=== PATIENT | male | born 1945 | race Caucasian/White ===

== ENCOUNTER 2024-03-24 10:13 | Inpatient (IN) | payer MEDICARE, BC ==
[~2024-03-24] VITALS: Ht 162.6 cm; Wt 62.1 kg
[2024-03-24 11:02] LABS: HEMATOCRIT 47 % (39-51); HEMOGLOBIN 15.5 g/dL (13.5-17.5); LYMPHOCYTES # (AUTO) 0.2 K/uL (0.8-4.8); LYMPHOCYTES % (AUTO) 1.8 % (20.0-44.0); MEAN CORPUSCULAR HEMOGLOBIN 29 PG (26.0-33.0); MEAN CORPUSCULAR HGB CONC 33 g/dl (31.0-36.0); MEAN CORPUSCULAR VOLUME 87 fL (80-96); MONOCYTES # (AUTO) 0.2 K/uL (0.1-1.30); MONOCYTES % (AUTO) 1.6 % (2.0-12.0); NEUTROPHILS # (AUTO) 12.5 K/uL (1.8-8.9); NEUTROPHILS % (AUTO) 96.6 % (43.0-81.0); PLATELET COUNT (AUTO) 322 K/uL (150-450); RED BLOOD CELL COUNT(AUTO) 5.44 MIL/uL (4.5-6.0); RED CELL DISTRIBUTION WIDTH 14.4 % (11.5-15.0); WHITE BLOOD COUNT (AUTO) 12.9 K/uL (4.3-11.0)
[2024-03-24 11:11] LABS: CALCIUM, SERUM 9.2 mg/dL (8.5-10.1); CREATININE 2.6 mg/dL (0.6-1.3); POTASSIUM 3.6 mmol/L (3.5-5.1)
[2024-03-24 11:16] LABS: ALBUMIN 2.6 g/dL (3.4-5.0); BILIRUBIN,DIRECT 0.3 mg/dL (0.0-0.2); BILIRUBIN,TOTAL 0.9 mg/dL (0.2-1.0); TOTAL PROTEIN, SERUM 6.9 g/dL (6.4-8.2)
[2024-03-24] MEDS: IV NS 0.9% 1,000 ML BAG IV ONE ×2 (12:29→14:19)
[2024-03-24 12:50] LABS: ADD URINE CULTURE YES; APPEARANCE,URINE CLOUDY (CLEAR); BACTERIA,URINE Many /HPF (None Seen); BILIRUBIN,URINE 1+ (NEGATIVE); BLOOD, URINE 3+ Ery/uL (NEGATIVE); COLOR,URINE DARK YELLOW (YELLOW); KETONES,URINE TRACE mg/dL (NEGATIVE); LEUKOCYTE ESTERASE ,URINE 2+ (NEGATIVE); NITRITE, URINE NEGATIVE (NEGATIVE); PROTEIN,URINE 2+ mg/dl (NEGATIVE); RBC,URINE 81-100 /HPF (0-2); SQUAMOUS EPITHELIAL CELL,UR Rare /HPF (None Seen); UGLUCOSE NEGATIVE (NEGATIVE); WBC,URINE 51-80 /HPF (0-3)
[2024-03-24] MEDS ORDERED: LEVO50TA8 PO (14:10)
[2024-03-24] MEDS ORDERED: ROSU10TA2 PO (14:10)
[2024-03-24] MEDS ORDERED: AMLO-212 PO (14:10)
[2024-03-24] MEDS ORDERED: OLME40TA18 PO (14:10)
[2024-03-24] MEDS ORDERED: HYDR12.55 PO (14:10)
[2024-03-24] MEDS: PIPERACILLIN /TAZOBACTAM 3.375 G in IV D5W 50 ML IV ONE (14:19)
[2024-03-24] MEDS ORDERED: hydrALAZINE HCL IV 20 MG VIAL IV PRN (16:30)
[2024-03-24] MEDS ORDERED: MORPHINE SULFATE INJ 2 MG/ML DISP.SYRIN IV PRN (16:30)
[2024-03-24] MEDS ORDERED: ACETAMINOPHEN 325 MG TABLET PO PRN (16:30)
[2024-03-24 21:00] VITALS: BP 105/62; TEMP 99.1; O2SAT 94
[2024-03-24] MEDS: HEPARIN SODIUM, PORCINE 5000 UNITS/1 ML VIAL SQ SCH (21:51)
[2024-03-24] MEDS ORDERED: CEFEPIME 1 GM VIAL ONE (22:51)
[2024-03-24] MEDS: CEFEPIME 1 GM in IV D5W 50 ML IV SCH (22:52)
[2024-03-24 23:00] VITALS: BP 117/64; TEMP 99; O2SAT 91
[2024-03-25] VITALS (85 sets, daily range): BP systolic 73–128; BP diastolic 50–86; TEMP 98.6–99.3; O2SAT 74–100
[2024-03-25 05:51] LABS: ABG BASE EXCESS -0.2 mmol/L (-2.0-3.0); ABG OXYGEN SATURATION 90.6 % (94.0-98.0); ABG PCO2 33.1 mmHg (35.0-48.0); ABG PH 7.457 (7.350-7.450); ABG PO2 57.2 mmHg (83.0-108.0); ABG TOTAL HEMOGLOBIN 15.6 G/dL (13.5-17.5); COHb 0.7 % (0.5-1.5); MetHb 0.2 % (0.0-1.5); O2Hb 89.8 % (94.0-97.0); SITE, ABG RIGHT BRACHIAL
[2024-03-25] MEDS: ONDANSETRON HCL/PF 4 MG/2 ML VIAL IVP PRN (06:09)
[2024-03-25] MEDS: PHENYLEPHRINE 50 MG in IV NS 0.9% 245 ML IV PRN (07:00)
[2024-03-25] MEDS: LEVOTHYROXINE SODIUM 50 MCG TABLET PO SCH (07:30)
[2024-03-25 07:57] LABS: HEMATOCRIT 43 % (39-51); HEMOGLOBIN 14.2 g/dL (13.5-17.5); LYMPHOCYTES # (AUTO) 0.2 K/uL (0.8-4.8); MEAN CORPUSCULAR HEMOGLOBIN 29 PG (26.0-33.0); MEAN CORPUSCULAR HGB CONC 33 g/dl (31.0-36.0); MEAN CORPUSCULAR VOLUME 87 fL (80-96); MONOCYTES # (AUTO) 0.1 K/uL (0.1-1.30); MONOCYTES % (AUTO) 1.1 % (2.0-12.0); NEUTROPHILS # (AUTO) 11.7 K/uL (1.8-8.9); NEUTROPHILS % (AUTO) 96.9 % (43.0-81.0); PLATELET COUNT (AUTO) 315 K/uL (150-450); RED BLOOD CELL COUNT(AUTO) 4.94 MIL/uL (4.5-6.0); RED CELL DISTRIBUTION WIDTH 14.9 % (11.5-15.0); WHITE BLOOD COUNT (AUTO) 12.1 K/uL (4.3-11.0)
[2024-03-25 08:41] LABS: ALBUMIN 1.9 g/dL (3.4-5.0); BILIRUBIN,TOTAL 0.6 mg/dL (0.2-1.0); CALCIUM, SERUM 8.5 mg/dL (8.5-10.1); CREATININE 2.9 mg/dL (0.6-1.3); MAGNESIUM 2.1 mg/dL (1.8-2.4); PHOSPHORUS 3.3 mg/dL (2.5-4.9); POTASSIUM 4.1 mmol/L (3.5-5.1)
[2024-03-25] MEDS ORDERED: LOSARTAN POTASSIUM 50 MG TABLET PO SCH (09:00)
[2024-03-25] MEDS: AMLODIPINE BESYLATE 5 MG TABLET PO SCH (09:00)
[2024-03-25] MEDS: ATORVASTATIN 40 MG TABLET PO SCH (09:00)
[2024-03-25] MEDS: METRONIDAZOLE 500MG/ NS 100ML 500 MG in PREMIX 1 EA IV SCH (09:19)
[2024-03-25] MEDS: PANTOPRAZOLE 40 MG VIAL IV SCH (16:56)
[2024-03-25] MEDS: CEFEPIME 1 GM in IV D5W 50 ML IV SCH (21:16)
[2024-03-26] VITALS (93 sets, daily range): BP systolic 85–144; BP diastolic 50–85; TEMP 98–98.6; O2SAT 91–98
[2024-03-26 06:08] LABS: PTH, INTACT 49 pg/mL (15-65)
[2024-03-26 07:42] LABS: BASOPHILS % (AUTO) 0.1 % (0.0-2.0); EOSINOPHILS % (AUTO) 0.1 % (0.0-6.0); HEMATOCRIT 36 % (39-51); LYMPHOCYTES # (AUTO) 0.3 K/uL (0.8-4.8); LYMPHOCYTES % (AUTO) 1.7 % (20.0-44.0); MEAN CORPUSCULAR HEMOGLOBIN 29 PG (26.0-33.0); MEAN CORPUSCULAR HGB CONC 33 g/dl (31.0-36.0); MEAN CORPUSCULAR VOLUME 88 fL (80-96); MONOCYTES # (AUTO) 0.4 K/uL (0.1-1.30); MONOCYTES % (AUTO) 2.2 % (2.0-12.0); NEUTROPHILS # (AUTO) 17.3 K/uL (1.8-8.9); NEUTROPHILS % (AUTO) 95.9 % (43.0-81.0); PLATELET COUNT (AUTO) 225 K/uL (150-450); RED BLOOD CELL COUNT(AUTO) 4.13 MIL/uL (4.5-6.0)
[2024-03-26 07:53] LABS: CALCIUM, SERUM 8.5 mg/dL (8.5-10.1); CREATININE 1.3 mg/dL (0.6-1.3); POTASSIUM 3.3 mmol/L (3.5-5.1)
[2024-03-26 07:59] LABS: ALBUMIN 1.7 g/dL (3.4-5.0); BILIRUBIN,TOTAL 0.4 mg/dL (0.2-1.0); TOTAL PROTEIN, SERUM 5.4 g/dL (6.4-8.2)
[2024-03-26] MEDS ORDERED: IV NS 0.9% 250 ML IV ONE (09:13)
[2024-03-26] MEDS ORDERED: CT SWABBABLE VALVE TRANS SET 1 EA INFUS.SET MC ONE (09:13)
[2024-03-26] MEDS ORDERED: IOHEXOL-350 100 ML VIAL IV ONE (09:13)
[2024-03-26] MEDS: LEVOTHYROXINE INJ 500 MCG VIAL IV SCH ×2 (10:00→10:46)
[2024-03-26] MEDS: POTASSIUM CL. PREMIX PERIPHER. 50 ML IV SCH (11:43)
[2024-03-26] MEDS: LEVOTHYROXINE INJ 100 MCG VIAL IV SCH (12:03)
[2024-03-26] MEDS: CEFEPIME 2 GM in IV D5W 100 ML IV SCH (14:11)
[2024-03-26] MEDS: IV D5/ 0.9% NACL 1,000 ML IV PRN (16:32)
[2024-03-26 18:16] LABS: THYROID STIMULATING HORMONE 1.81 uIU/mL (0.358-3.74)
[2024-03-26] MEDS: PIPERACILLIN /TAZOBACTAM 3.375 G in IV D5W 50 ML IV SCH (20:30)
[2024-03-26] MEDS: PIPERACI/TAZO 3.375GM/D5W 50ML PB IV ONE (20:47)
[2024-03-27] VITALS (45 sets, daily range): BP systolic 92–124; BP diastolic 50–83; TEMP 98–98.2; O2SAT 93–97
[2024-03-27] MEDS: PIPERACI/TAZO 3.375GM/D5W 50ML PB IV ONE (04:30)
[2024-03-27 05:27] LABS: BASOPHILS % (AUTO) 0.2 % (0.0-2.0); EOSINOPHILS % (AUTO) 0.2 % (0.0-6.0); HEMATOCRIT 34 % (39-51); HEMOGLOBIN 11.2 g/dL (13.5-17.5); LYMPHOCYTES # (AUTO) 0.3 K/uL (0.8-4.8); LYMPHOCYTES % (AUTO) 1.7 % (20.0-44.0); MEAN CORPUSCULAR HEMOGLOBIN 29 PG (26.0-33.0); MEAN CORPUSCULAR HGB CONC 33 g/dl (31.0-36.0); MEAN CORPUSCULAR VOLUME 86 fL (80-96); MONOCYTES # (AUTO) 0.4 K/uL (0.1-1.30); MONOCYTES % (AUTO) 2.5 % (2.0-12.0); NEUTROPHILS # (AUTO) 15.3 K/uL (1.8-8.9); NEUTROPHILS % (AUTO) 95.4 % (43.0-81.0); PLATELET COUNT (AUTO) 184 K/uL (150-450); RED BLOOD CELL COUNT(AUTO) 3.91 MIL/uL (4.5-6.0)
[2024-03-27 05:31] LABS: CALCIUM, SERUM 8.3 mg/dL (8.5-10.1); CARBON DIOXIDE 31 mmol/L (21-32); CHLORIDE 121 mmol/L (98-107); CREATININE 1.1 mg/dL (0.6-1.3); GLUCOSE 146 mg/dL (74-106); POTASSIUM 3.5 mmol/L (3.5-5.1); UREA NITROGEN, BLOOD 48 mg/dL (7-18)
[2024-03-27 05:37] LABS: ALANINE AMINOTRANSFERASE 31 U/L (12-78); ALKALINE PHOSPHATASE 71 U/L (46-116); ASPARTATE AMINOTRANSFERASE 49 U/L (15-37); BILIRUBIN,TOTAL 0.4 mg/dL (0.2-1.0); TOTAL PROTEIN, SERUM 4.8 g/dL (6.4-8.2)
[2024-03-27 05:42] LABS: ALBUMIN 1.4 g/dL (3.4-5.0); SODIUM SERUM 157 mmol/L (136-145)
[2024-03-27] MEDS: IV D5W 1,000 ML IV PRN (06:55)
[2024-03-27] MEDS: PANTOPRAZOLE 40 MG VIAL IV SCH (20:30)
[2024-03-28] VITALS (25 sets, daily range): BP systolic 113–143; BP diastolic 56–84; TEMP 97.9–98.4; O2SAT 90–96
[2024-03-28 05:21] LABS: BASOPHILS % (AUTO) 0.1 % (0.0-2.0); EOSINOPHILS # (AUTO) 0.1 K/uL (0.0-0.7); EOSINOPHILS % (AUTO) 0.8 % (0.0-6.0); HEMATOCRIT 33 % (39-51); HEMOGLOBIN 11.1 g/dL (13.5-17.5); LYMPHOCYTES # (AUTO) 0.4 K/uL (0.8-4.8); LYMPHOCYTES % (AUTO) 2.6 % (20.0-44.0); MEAN CORPUSCULAR HEMOGLOBIN 29 PG (26.0-33.0); MEAN CORPUSCULAR HGB CONC 34 g/dl (31.0-36.0); MEAN CORPUSCULAR VOLUME 86 fL (80-96); MONOCYTES # (AUTO) 0.7 K/uL (0.1-1.30); MONOCYTES % (AUTO) 4.4 % (2.0-12.0); NEUTROPHILS % (AUTO) 92.1 % (43.0-81.0); PLATELET COUNT (AUTO) 159 K/uL (150-450); RED CELL DISTRIBUTION WIDTH 14.9 % (11.5-15.0); WHITE BLOOD COUNT (AUTO) 15.2 K/uL (4.3-11.0)
[2024-03-28 05:27] LABS: CALCIUM, SERUM 7.9 mg/dL (8.5-10.1)
[2024-03-28 05:32] LABS: BILIRUBIN,TOTAL 0.4 mg/dL (0.2-1.0); TOTAL PROTEIN, SERUM 4.7 g/dL (6.4-8.2)
[2024-03-28 06:03] LABS: ALBUMIN 1.4 g/dL (3.4-5.0)
[2024-03-28] MEDS ORDERED: LEVOTHYROXINE SODIUM 25 MCG TABLET PO SCH (07:30)
[2024-03-28 08:09] LABS: IMMUNOGLOBULIN A, SERUM 81 mg/dL (61-437); IMMUNOGLOBULIN G, SERUM 549 mg/dL (603-1613); IMMUNOGLOBULIN M, SERUM 23 mg/dL (15-143)
[2024-03-28] MEDS: PANTOPRAZOLE 40 MG TABLET.DR PO SCH (09:14)
[2024-03-28] MEDS ORDERED: IV NS 0.9% 250 ML IV ONE (14:07)
[2024-03-28] MEDS ORDERED: CT SWABBABLE VALVE TRANS SET 1 EA INFUS.SET MC ONE (14:07)
[2024-03-28] MEDS ORDERED: IOHEXOL-300 100 ML VIAL IV ONE (14:07)
[2024-03-28 14:09] LABS: *SPE A/G RATIO 0.7 (0.7-1.7); *SPE ALBUMIN 1.6 g/dL (2.9-4.4); *SPE ALPHA-1-GLOBULIN 0.4 g/dL (0.0-0.4); *SPE ALPHA-2-GLOBULIN 0.9 g/dL (0.4-1.0); *SPE BETA GLOBULIN 0.6 g/dL (0.7-1.3); *SPE GLOBULIN, TOTAL 2.3 g/dL (2.2-3.9); *SPE M-SPIKE 0.2 g/dL (Not Observed); *SPE PROTEIN TOTAL 3.9 g/dL (6.0-8.5); *SPEGAMMA GLOBULIN 0.4 g/dL (0.4-1.8)
[2024-03-28] MEDS: POTASSIUM CHLORIDE 20 MEQ POWDER PACKET PO SCH (14:31)
[2024-03-28] MEDS: POTASSIUM CHLORIDE 20 MEQ POWDER PACKET ONE (14:40)
[2024-03-29] VITALS: BP 139/88; TEMP 98.4; O2SAT 94
[2024-03-29 01:00] VITALS: BP 125/73; O2SAT 94
[2024-03-29 02:00] VITALS: BP 143/79; O2SAT 93
[2024-03-29 06:09] LABS: *SPE A/G RATIO 0.7 (0.7-1.7); *SPE ALPHA-1-GLOBULIN 0.6 g/dL (0.0-0.4); *SPE BETA GLOBULIN 0.8 g/dL (0.7-1.3); *SPE GLOBULIN, TOTAL 2.9 g/dL (2.2-3.9); *SPE M-SPIKE 0.4 g/dL (Not Observed); *SPE PROTEIN TOTAL 4.9 g/dL (6.0-8.5); *SPEGAMMA GLOBULIN 0.6 g/dL (0.4-1.8)
[2024-03-29] MEDS ORDERED: LEVOTHYROXINE SODIUM 25 MCG TABLET PO SCH (07:30)
[2024-03-29 11:06] LABS: FREE KAPPA LT CHAINS SERUM 21.1 mg/L (3.3-19.4); FREE LAMBDA LT CHAIN SERUM 35.6 mg/L (5.7-26.3); KAPPA/LAMBDA RATIO SERUM 0.59 (0.26-1.65)
== END 2024-03-29 02:36 | disposition short-term general hospital (02) | DRG 871 ==
LOC: ER 10:25 → MEDSG1 20:14 → ICU 03-25 05:30
PROVIDERS: ADMIT Internal Medicine
PROC: 02HV33Z Insertion of Infusion Device into Superior Vena Cava, Percutaneous Approach (ICD-10-PCS; principal; 2024-03-25)
PROC: B548ZZA Ultrasonography of Superior Vena Cava, Guidance (ICD-10-PCS; 2024-03-25)
DX: A41.9 Sepsis, unspecified organism (principal); J69.0 Pneumonitis due to inhalation of food and vomit; J96.01 Acute respiratory failure with hypoxia; R65.21 Severe sepsis with septic shock; K65.1 Peritoneal abscess; N17.9 Acute kidney failure, unspecified; N13.6 Pyonephrosis; J98.11 Atelectasis; E87.0 Hyperosmolality and hypernatremia; R18.8 Other ascites; I12.9 Hypertensive chronic kidney disease with stage 1 through stage 4 chronic kidney disease, or unspecified chronic kidney disease; K52.9 Noninfective gastroenteritis and colitis, unspecified; Z20.822 Contact with and (suspected) exposure to COVID-19; Z90.79 Acquired absence of other genital organ(s); N18.9 Chronic kidney disease, unspecified; E03.9 Hypothyroidism, unspecified; E78.5 Hyperlipidemia, unspecified; Z88.5 Allergy status to narcotic agent; Z79.890 Hormone replacement therapy; Z79.899 Other long term (current) drug therapy; B96.89 Other specified bacterial agents as the cause of diseases classified elsewhere; N28.1 Cyst of kidney, acquired; N32.89 Other specified disorders of bladder
CPT/HCPCS: 36415; 36600; 71045-TC; 71260-TC; 74018; 76770-TC; 80048-TC; 80053-TC; 80076-TC; 81001; 82378; 82550-TC; 82553; 82607-TC; 82728-TC; 82784; 82803-TC; 83540-TC; 83605-TC; 83690-TC; 83735-TC; 83970; 84100-TC; 84155; 84165; 84443-TC; 85025-TC; 86334; 87040-TC; 93970-TC; 94762-TC; 94799-TC; A4216; A4223; G0378; J0692; J1644; J2405; J2470; J2543; J3480; J7030; J7042; J7050; J7060; J7070; Q9967